=== PATIENT | female | born 1970 | race American Indian/Alaskan Native ===

== ENCOUNTER 2018-03-28 14:31 | Emergency (ER) | payer SELFPAY ==
[2018-03-28 15:22] VITALS: BP 138/88
[2018-03-28] MEDS ORDERED: NORCO 5/325 ONE (18:10)
[2018-03-28] MEDS ORDERED: MOTRIN ONE (18:10)
[2018-03-28] MEDS ORDERED: NORCO 5/325 PO ONE (18:12)
[2018-03-28] MEDS ORDERED: MOTRIN PO ONE (18:12)
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
== END 2018-03-28 19:30 | disposition left against medical advice (07) ==
LOC: ED 14:31
DX: M54.5 Low back pain (principal); Z53.21 Procedure and treatment not carried out due to patient leaving prior to being seen by health care provider
CPT/HCPCS: 72100

== ENCOUNTER 2018-03-29 11:08 | Emergency (ER) | payer OTHER ==
[2018-03-29 11:29] VITALS: BP 140/89
[2018-03-29] MEDS ORDERED: MOTRIN PO ONE (12:44)
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
== END 2018-03-29 13:05 | disposition home or self-care (01) ==
LOC: ED 11:08
DX: S13.4XXA Sprain of ligaments of cervical spine, initial encounter (principal); S39.012A Strain of muscle, fascia and tendon of lower back, initial encounter; F17.200 Nicotine dependence, unspecified, uncomplicated; V89.2XXA Person injured in unspecified motor-vehicle accident, traffic, initial encounter; Y93.89 Activity, other specified; Y92.89 Other specified places as the place of occurrence of the external cause; Y99.8 Other external cause status
CPT/HCPCS: 99282